=== PATIENT | female | born 1985 | race Caucasian/White ===

== ENCOUNTER 2019-01-30 08:17 | Day surgery (SDC) | payer OTHER ==
[~2019-01-30] VITALS: Ht 144.8 cm; Wt 70.6 kg
[~2019-01-30 08:17] MED LIST: DICY10CA40 PO; FAMO20TA18 PO; FENT1PAT7 TD; FLO1 PO; GABA100C14 PO; HYDR2TAB36 PO; LEVO125T71 PO; LORA1TAB PO; SERT50TA PO; TOPI25TA10 PO; WARF6TAB PO; WARF6TAB48 PO
[2019-01-30] MEDS ORDERED: CEFAZOLIN 2 GM/50 ML (PMX) 50 ML IVPB ONE (09:30)
[2019-01-30 09:46] VITALS: Ht 144.8 cm; Wt 70.6 kg
== END 2019-01-30 10:12 | disposition home or self-care (01) ==
LOC: SDS 08:17
PROVIDERS: ATTEND Podiatrist Foot & Ankle Surgery
DX: D16.32 Benign neoplasm of short bones of left lower limb (principal); Z53.09 Procedure and treatment not carried out because of other contraindication; Z79.01 Long term (current) use of anticoagulants; Q90.9 Down syndrome, unspecified
CPT/HCPCS: J0690